=== PATIENT | male | born 1970 | race Caucasian/White ===

== ENCOUNTER 2017-09-18 20:40 | Outpatient (CLI) | payer MEDICAID | END 2017-09-18 20:41 | disposition critical access hospital (66) | LOC: EMS 20:40 | PROVIDERS: ATTEND Surgery | DX: R50.9 Fever, unspecified (principal); R06.02 Shortness of breath; R52 Pain, unspecified | CPT/HCPCS: A0425; A0429; A0999 ==

== ENCOUNTER 2017-09-18 21:06 | Inpatient (IN) | payer MEDICAID ==
[2017-09-18] MEDS ORDERED: KETOROLAC 60 MG/2 ML VIAL IVP STA (21:14)
[2017-09-18] MEDS ORDERED: LORazepam 0.5 MG TABLET PO STA (21:14)
[2017-09-18] MEDS ORDERED: MORPHINE 10 MG/ML VIAL IVP STA (21:14)
[2017-09-18] MEDS ORDERED: ACETAMINOPHEN 500 MG TABLET PO STA (21:14)
[2017-09-18] MEDS ORDERED: SODIUM CHLORIDE 0.9% 1,000 ML IV ONE ×2 (21:14→22:33)
--- NOTE | 2017-09-18 21:31 | ED Physician Documentation ---
History of Present Illness - Stated complaint Stated Complaint: FEVER/SOA - Chief complaint Chief Complaint: Resp - History obtained from History obtained from: Patient, EMS - Additonal information Additional information: 47-year-old male presents to the emergency department with complaints of fever, chills, body aches, cough and right-sided chest pain with shortness of breath. The patient has been using heroin and methamphetamines, today his symptoms began. The patient denies abdominal pain, dyspnea on exertion, productive cough or peripheral edema. Symptoms are described as moderate. No other associated symptoms. No radiation of the symptoms. No attempts at symptom management Review of Systems Constitutional: reports: Fever, Chills, Myalgias, Fatigue Eyes: denies: Discharge Ears: denies: Ear pain Nose: reports: Congestion Throat: denies: Oral lesions / sores Cardiac: reports: Chest pain / pressure Respiratory: reports: Dyspnea GI: denies: Abdominal Pain, Nausea : denies: Dysuria Skin: denies: Lesions Musculoskeletal: denies: Neck pain Neurologic: reports: Generalized weakness. denies: Numbness, Difficulty speaking, Near syncope Immunocompromised: denies: Chemotherapy PD PAST MEDICAL HISTORY - Past Medical History Psych: Bipolar disorder - Past Surgical History Past Surgical History: No - Present Medications Home Medications: Ambulatory Orders Medication Instructions Recorded Confirmed No Known Home Medications [No 09/18/17 09/18/17 Known Home Medications] - Allergies Allergies/Adverse Reactions: Allergies Allergy/AdvReac Type Severity Reaction Status Date / Time No Known Drug Allergies Allergy Verified 09/18/17 21:12 - Social History Does the pt smoke?: Yes Smoking Status: Current every day smoker Does the pt drink ETOH?: No PD ED PE NORMAL - General General: Alert and oriented X 3 - HEENT HEENT: Atraumatic, PERRL, EOMI, Ears normal - Neck Neck: Supple, no meningeal sign - Cardiac Cardiac: RRR, No gallop - Respiratory Respiratory: No respiratory distress, Clear bilaterally - Abdomen Abdomen: Soft, Non tender, Non distended - Derm Derm: Normal color, Warm and dry, No rash - Extremities Extremities: No deformity, No edema - Neuro Neuro: Alert and oriented X 3, Normal speech - Psych Psych: Normal mood PD ED PE EXPANDED - General General: In Pain Results - Vitals Vitals: Vital Signs - 24 hr 09/18/17 09/18/17 09/18/17 21:09 21:21 22:45 Temperature 38.6 C H 39.4 C H 37.4 C Heart Rate 85 79 Respiratory 24 20 Rate Blood Pressure 123/68 91/56 L O2 Saturation 97 97 Oxygen O2 Source Room air - EKG (time done) 21: 28 Rate: Rate (enter#) Rhythm: NSR Intervals: Normal PA, QRS normal Ischemia: Non specific changes Other comments: Other comments (Normal sinus rhythm with no acute ischemic changes) - Labs Labs: Laboratory Tests 09/18/17 09/18/17 09/18/17 21:29 21:29 21:35 WBC 17.1 H RBC 4.38 L Hgb 12.2 L Hct 36.8 L MCV 84.0 MCH 27.8 MCHC 33.0 RDW 13.8 Plt Count 193 MPV 7.6 Neut # (Auto) 15.2 H Lymph # (Auto) 0.8 L [place] # (Auto) 1.0 Eos # (Auto) 0.0 Baso # (Auto) 0.0 Absolute Nucleated RBC 0.00 Nucleated RBC % 0.0 Sodium 125 L Potassium 4.1 Chloride 93 L Carbon Dioxide 24 Anion Gap 8.0 BUN 12 Creatinine 0.8 Estimated GFR (MDRD) 105 Glucose 132 H Lactic Acid Calcium 7.9 L Magnesium 2.0 Total Bilirubin 1.0 AST 18 ALT 18 Alkaline Phosphatase 63 Total Creatine Kinase 36 Troponin I < 0.04 B-Natriuretic Peptide Total Protein 6.9 Albumin 3.0 L Globulin 3.9 Albumin/Globulin Ratio 0.8 L Lipase 33 Salicylates < 6.0 Acetaminophen < 10 L Ethyl Alcohol < 5.0 09/18/17 09/18/17 21:35 21:35 WBC RBC Hgb Hct MCV MCH MCHC RDW Plt Count MPV Neut # (Auto) Lymph # (Auto) [place] # (Auto) Eos # (Auto) Baso # (Auto) Absolute Nucleated RBC Nucleated RBC % Sodium Potassium Chloride Carbon Dioxide Anion Gap BUN Creatinine Estimated GFR (MDRD) Glucose Lactic Acid 1.3 Calcium Magnesium Total Bilirubin AST ALT Alkaline Phosphatase Total Creatine Kinase Troponin I B-Natriuretic Peptide 24 Total Protein Albumin Globulin Albumin/Globulin Ratio Lipase Salicylates Acetaminophen Ethyl Alcohol - Rads (name of study) Chest Xray Radiology: Final report received, See rad report (Impression: Right infiltrate) PD MEDICAL DECISION MAKING - ED course ED course: The patient appears to be acutely ill from pneumonia with hyponatremia. The patient will require admission to the hospital for IV antibiotic and correction of hisSodium. The findings and plan were discussed with the patient who understands and agrees. The case discussed with the hospitalist Dr. Mederos who accepts the patient onto her service - Sepsis Event Vital Signs: Vital Signs - 24 hr 09/18/17 09/18/17 09/18/17 21:09 21:21 22:45 Temperature 38.6 C H 39.4 C H 37.4 C Heart Rate 85 79 Respiratory 24 20 Rate Blood Pressure 123/68 91/56 L O2 Saturation 97 97 Oxygen O2 Source Room air Departure - Departure Disposition: ED Place in Observation Clinical Impression: Hyponatremia, Drug abuse Pneumonia Qualifiers: Pneumonia type: due to unspecified organism Laterality: unspecified laterality Lung location: unspecified part of lung Qualified Code(s): J18.9 - Pneumonia, unspecified organism Condition: Good
[2017-09-18 21:44] LABS: BASOPHILS % (AUTO) 0.2 %; HGB - HEMOGLOBIN 12.2 g/dL (14.0-18.0); LYMPHOCYTES # (AUTO) 0.8 10^3/uL (1.5-3.5); LYMPHOCYTES % (AUTO) 4.8 %; MEAN CORPUSCULAR HEMOGLOBIN 27.8 pg (27.0-31.0); MEAN PLATELET VOLUME 7.6 fL (7.4-11.4); MONOCYTES % (AUTO) 6.1 %; NEUTROPHILS # (AUTO) 15.2 10^3/uL (1.5-6.6); NEUTROPHILS % (AUTO) 88.9 %; PLT - PLATELET COUNT 193 10^3/uL (130-450); RED BLOOD COUNT 4.38 10^6/uL (4.70-6.10); RED CELL DISTRIBUTION WIDTH 13.8 % (12.0-15.0); WHITE BLOOD COUNT 17.1 x10^3/uL (4.8-10.8)
[2017-09-18 21:51] LABS: ALBUMIN/GLOBULIN RATIO 0.8 (1.0-2.2); ALKALINE PHOSPHATASE 63 IU/L (42-121); ALT ALANINE AMINOTRANSFERASE 18 IU/L (10-60); AST ASPARTATE AMINOTRANSFERASE 18 IU/L (10-42); BUN - BLOOD UREA NITROGEN 12 mg/dL (6-20); CALCIUM 7.9 mg/dL (8.5-10.3); CARBON DIOXIDE - CO2 24 mmol/L (21-32); CHLORIDE 93 mmol/L (101-111); CK- CREATINE KINASE 36 IU/L (22-269); CREATININE 0.8 mg/dL (0.6-1.2); GFR - MDRD 105 (>89); GLUCOSE 132 mg/dL (70-100); LIPASE 33 U/L (22-51); SALICYLATE < 6.0 mg/dL; SODIUM 125 mmol/L (135-145); TOTAL PROTEIN 6.9 g/dL (6.7-8.2)
[2017-09-18 22:02] LABS: ACETAMINOPHEN < 10 ug/mL (10-30)
--- NOTE | 2017-09-18 22:18 | XRAY Report ---
Procedure Date: 09/18/2017 Accession Number: [id number] / [id number] Procedure: XR - Chest 2 View X-Ray CPT Code: 71880 FULL RESULT: EXAM: CHEST RADIOGRAPHY EXAM DATE: 09/18/2017 09:49 PM. CLINICAL HISTORY: CP. COMPARISON: None. TECHNIQUE: 2 views. FINDINGS: Lungs/Pleura: Patchy increased density in right mid and lower lung zones. No consolidation, effusion, or pneumothorax. Mediastinum: Heart and mediastinal contours are unremarkable. Upper lobe vessels not distended. Other: Slight anterior narrowing of T7 and possibly T6, probably old. IMPRESSION: Patchy right-sided infiltrates, acute versus chronic. Follow-up may be helpful. RADIA
[2017-09-18] MEDS ORDERED: cefTRIAXone 2 GM in SODIUM CHLORIDE 0.9% MINIBAG 100 ML IV STA (22:23)
[2017-09-18] MEDS ORDERED: AZITHROMYCIN INJ 500 MG in SODIUM CHLORIDE 0.9% 250 ML IV STA (22:23)
[2017-09-18] MEDS ORDERED: SODIUM CHLORIDE FLUSH 0.9% 10 ML SYRINGE IVP PRN (22:43)
[2017-09-18] MEDS ORDERED: KETOROLAC 30 MG/ML VIAL IM STA (22:45)
[2017-09-18] MEDS ORDERED: cefTRIAXone 1 GM in SODIUM CHLORIDE 0.9% MINIBAG 100 ML IV STA (22:47)
[2017-09-18] MEDS ORDERED: NALOXONE 0.4 MG/ML VIAL IVP STA (23:00)
--- NOTE | 2017-09-18 23:06 | HISTORY & PHYSICAL EXAMINATION ---
Chief Complaint - Chief Complaint Chief Complaint: Shortness of breath History of Present Illness - Admitted From Admitted From:: Home - History Obtained From History obtained from: Patient, Ed Physician Exam Limitations: Pt is sedated, not waking up dspite narcan administration - History of Present Illness HPI Comment/Other: Mr. Tyrese villarreal is a 47-year-old man who is a methamphetamine and heroin drug user, last using the morning of September 18 according to him, who is been having increasing shortness of breath over the last couple of days. He came to the emergency department and was found to have a right middle lobe infiltrate and was also found to be severely hyponatremic, with a value of 125. He was not significantly hypoxic but given his hyponatremia and his right middle lobe pneumonia and was felt to be prudent to admit him to the hospital at this time. The patient's past medical history is remarkably benign with a denial of any home medications, any surgical history, or any prior hospitalizations. He will be admitted to medical surgical bed, placed on IV antibiotics, and his significant hyponatremia will be addressed. History - Past Medical History Cardiovascular: reports: None Respiratory: reports: None Neuro: reports: None Endocrine/Autoimmune: reports: None GI: reports: None PUBLIC DEFENDER: reports: None : reports: None HEENT: reports: None Psych: reports: Bipolar disorder Musculoskeletal: reports: None Derm: reports: None MRSA Hx?: No Other Past Medical History: The patient denies any prior hospitalizations or any existing medical issues. - Past Surgical History Other past surgical history: The patient denies any surgical history - Family & Social History Family History: Mother: , Cancer, Father: Alive and Well, Sister: Alive and Well, Brother: Alive and Well Family History Comment/Other: Patient says his father and siblings are alive and well and that his mother from cancer.He denies any knowledge of any other medical issues in the family. Living arrangement: Other (The patient is a drug addict and moves around. He says he is not homeless but is living with a friend.) Living Situation: With friend(s) Social History Notes: The patient is an IV drug user and says he lives with friends and is not homeless - Substance History Use: Uses substance without health or social issues: NONE Abuse: Recurrent use of substance despite neg consequences: Amphetamine, Opioid Dependence: Experiences withdrawal or developed tolerances: Amphetamine, Opioid - POLST Patient has POLST: No POLST Status: Full Code (Patient denies tobacco use but smokes marijuana) Meds/Allgy - Home Medications Home Medications: Ambulatory Orders Medication Instructions Recorded Confirmed No Known Home Medications [No 09/18/17 09/18/17 Known Home Medications] - Allergies Allergies/Adverse Reactions: Allergies Allergy/AdvReac Type Severity Reaction Status Date / Time No Known Drug Allergies Allergy Verified 09/18/17 21:12 Review of Systems - Constitutional Constitutional: reports: Fatigue, Weakness. denies: Fever, Chills, Malaise, Night sweats - Eyes Eyes: denies: Pain, Irritation, Blurred vision, Dipolpia - Ears, Nose & Throat Ears, Nose & Throat: denies: Ear pain, Hearing loss, Hearing aids, Tinnitus, Vertigo, Nasal pain, Nasal discharge, Nosebleeds - Cardiovascular Cariovascular: reports: Chest pain. denies: Irregular heart rate, Palpitations , Edema, Syncope - Respiratory Respiratory: reports: SOB with exertion. denies: Cough, Sputum production, Wheezing, Snoring, Hemoptysis, Orthopnea, SOB at rest - Gastrointestinal Gastrointestinal: denies: Abdominal pain, Abdominal distention, Constipation, Change in bowel habits, Rectal bleeding, Nausea, Vomiting - Genitourinary Genitourinary: denies: Dysuria, Frequency, Urgency, Hematuria - Musculoskeletal Musculoskeletal: denies: Muscle pain, Back pain, Muscle aches, Stiffness - Integumentary Integumentary: denies: Rash, Pruritis, Lesions, Dryness - Neurological Neurological: denies: General weakness, Focal weakness, Headache, Dizziness - Psychiatric Psychiatric: reports: Other (Patient has a history of bipolar disorder. He is somewhat sedated at this time despite not being given any psychoactive medications, likely withdrawing from the methamphetamine). denies: Depression, Anxiety, Suicidal, Hallucinations - Endocrine Endocrine: denies: Polyuria, Polydypsia, Polyphagia - Hematologic/Lymphatic Hematologic/Lymphatic: denies: Anemia, Bruising, Petechiae, Lymphadenopathy - All Other Systems All Other Systems: reports: Reviewed and negative Exam - Vital Signs Reviewed Vital Signs: Yes Vital Signs: Vital Signs x48h Temp Pulse Resp BP Pulse Ox 09/18/17 22:45 37.4 C 79 20 91/56 L 97 09/18/17 21:21 39.4 C H 09/18/17 21:09 38.6 C H 85 24 123/68 97 - Physical Exam General Appearance: positive: No acute distress, Lethargic Eyes Bilateral: positive: Normal inspection, PERRL, EOMI, No lid inflammation, Conjunctivae nml, No scleral icterus ENT: positive: ENT inspection nml, Pharynx nml, No signs of dehydration Neck: positive: Nml inspection, Thyroid nml, No JVD, Trachea midline. negative : Thyromegaly Respiratory: positive: Chest non-tender, No respiratory distress, Breath sounds nml. negative: Wheezes, Rales, Rhonchi Cardiovascular: positive: Regular rate & rhythm, No murmur, No gallop Peripheral Pulses: positive: 1+ Abdomen: positive: Non-tender, No organomegaly, Nml bowel sounds, No distention. negative: Guarding, Rebound Back: positive: Nml inspection. negative: CVA tenderness (R), CVA tenderness (L ) Skin: positive: Color nml, No rash, Warm, Dry. negative: Cyanosis Extremities: positive: Non-tender, Full ROM, Nml appearance, No pedal edema Neurologic/Psychiatric: positive: Oriented x3, CN's nml (2-12), Motor nml, Sensation nml, Depressed mood/affect Conclusion/Plan - Problem List (1) Pneumonia Conclusion/Plan: The patient is shown to have a right middle lobe infiltrate, presumably pneumonia. We will start him on ceftriaxone and azithromycin for community- acquired pneumonia. We will give him supplemental oxygen as needed and if necessary respiratory therapy. He currently has an oxygen saturation of 97% on room air. Qualifiers: Pneumonia type: due to unspecified organism Laterality: unspecified laterality Lung location: unspecified part of lung Qualified Code(s): J18.9 - Pneumonia, unspecified organism (2) Hyponatremia Conclusion/Plan: Patient's sodium is 125. We will give him normal saline via IV fluids and oral salt tablets. (3) Drug abuse Conclusion/Plan: We will obtain a geriatric social work professor consult for the patient to see if he is qualified for any programs that he may be interested in. - Lab Results Lab results reviewed: Yes Fish Bones: 09/19/17 05:13 09/19/17 05:13 - Diagnostic Imaging Results Diagnostic Imaging Results: positive: Final report reviewed Diagnostic Imaging Results Comments: EXAM: CHEST RADIOGRAPHY EXAM DATE: 09/18/2017 09:49 PM. CLINICAL HISTORY: CP. COMPARISON: None. TECHNIQUE: 2 views. FINDINGS: Lungs/Pleura: Patchy increased density in right mid and lower lung zones. No consolidation, effusion, or pneumothorax. Mediastinum: Heart and mediastinal contours are unremarkable. Upper lobe vessels not distended. Other: Slight anterior narrowing of T7 and possibly T6, probably old. IMPRESSION: Patchy right-sided infiltrates, acute versus chronic. Follow-up may be helpful. - EKG Results EKG Interpreted Independently: Yes EKG Comparison: Old EKG unavailable EKG Findings: Normal sinus rhythm, rate 84. No signs of ischemic changes Core Measures - Anticipated LOS I expect patient to be DC'd or transferred within 96 hours.: Yes - DVT/VTE - Prophylaxis VTE/DVT Device ordered at admit?: Yes
[2017-09-18] MEDS ORDERED: NALOXONE 0.4 MG/ML VIAL ONE (23:10)
[2017-09-19] MEDS: KETOROLAC 30 MG/ML VIAL IVP PRN ×3 (03:19→18:19)
[2017-09-19] MEDS: SODIUM CHLORIDE 1 GM TABLET PO SCH ×4 (03:19→16:41)
[2017-09-19 03:28] LABS: BILIRUBIN,URINE NEGATIVE (NEGATIVE); GLUCOSE, URINE (UA) NEGATIVE (NEGATIVE); KETONES,URINE (UA) NEGATIVE (NEGATIVE); LEUKOCYTE ESTERASE, URINE NEGATIVE (NEGATIVE); NITRITE,URINE NEGATIVE (NEGATIVE); OCCULT BLOOD,URINE NEGATIVE (NEGATIVE); PROTEIN,URINE TRACE mg/dL (NEGATIVE); UROBILINOGEN,URINE 1 (NORMAL) E.U./dL (NORMAL)
[2017-09-19 03:33] LABS: CLARITY,URINE CLEAR (CLEAR)
[2017-09-19] MEDS: D5.45NS W/20 MEQ KCL 1,000 ML IV SCH ×3 (03:46→21:31)
[2017-09-19] MEDS: SODIUM CHLORIDE FLUSH 0.9% 10 ML SYRINGE IVP SCH ×3 (03:52→16:41)
[2017-09-19 05:47] LABS: HGB - HEMOGLOBIN 11.4 g/dL (14.0-18.0); MEAN CORPUSCULAR HEMOGLOBIN 27.7 pg (27.0-31.0); MEAN CORPUSCULAR HGB CONC 33.3 g/dL (32.0-36.0); MEAN CORPUSCULAR VOLUME 83.3 fL (80.0-94.0); MEAN PLATELET VOLUME 8.2 fL (7.4-11.4); RED BLOOD COUNT 4.1 10^6/uL (4.70-6.10)
[2017-09-19 05:59] LABS: CALCIUM 7.9 mg/dL (8.5-10.3); CREATININE 0.8 mg/dL (0.6-1.2)
[2017-09-19] MEDS: POLYETHYLENE GLYCOL 3350 17 GM PACKET PO SCH (08:23)
--- NOTE | 2017-09-19 08:37 | XRAY Report ---
Procedure Date: 09/19/2017 Accession Number: [id number] / [id number] Procedure: XR - Chest 1 View X-Ray CPT Code: 40654 FULL RESULT: EXAM: Chest 1 View X-Ray DATE: 09/19/2017 7:19 AM CLINICAL HISTORY: pneumonia COMPARISON: 09/18/2017. TECHNIQUE: Single view of the chest. FINDINGS: Lungs/Pleura: Bibasilar opacities left greater than right are new compared to prior, in the setting of clinical pneumonia this represents early airspace infiltrate. No pleural effusion or pneumothorax. Mediastinum: Within exam limitations, cardiomediastinal contour is normal. Other: None. IMPRESSION: Early pneumonia predominately left lung base. RADIA
[2017-09-19] MEDS ORDERED: AZITHROMYCIN INJ 250 MG in SODIUM CHLORIDE 0.9% 250 ML IV SCH (09:00)
[2017-09-19] MEDS ORDERED: cefTRIAXone 1 GM in SODIUM CHLORIDE 0.9% MINIBAG 100 ML IV SCH (09:00)
--- NOTE | 2017-09-19 09:27 | PROVIDER PROGRESS NOTE ---
Subjective - Prog Note Date Prog Note Date: 09/19/17 Prog Note Time: 09:26 - Subjective Pt reports feeling: No change Subjective: Tyrese complains of upper right, non-radiating chest pain that is sharp and constant. He is found in the " position" upon exam. He may not have made eye contact for any part of this exam. He admits to increased shortness of breath, nausea, and a cough. He denies hallucinations, vomiting or dizziness. Current Medications - Current Medications Current Medications: Microbiology 09/18/17 21:35 Blood Culture - Preliminary Blood 09/18/17 21:29 Blood Culture - Preliminary Blood Active Medications Haloperidol (Haldol Inj) 1 mg IM Q4H PRN PRN Reason: Agitation Last Admin: 09/19/17 15:47 Dose: 1 mg Potassium Chloride/Dextrose/Sod Cl (D5.45ns W/20 Meq Kcl) 1,000 mls @ 100 mls/ hr IV .Q10H [facility] Last Infusion: 09/20/17 06:00 Dose: 100 mls/hr Piperacillin Sod/Tazobactam (Sod 4.5 gm/ Sodium Chloride) 100 mls @ 200 mls/hr IV Q6H [facility] Last Infusion: 09/20/17 07:28 Dose: Infused Vancomycin HCl 1 gm/ Sodium (Chloride) 250 mls @ 130 mls/hr IV 0400,1200,2000 [facility] Last Infusion: 09/20/17 06:00 Dose: Infused Ibuprofen (Motrin) 600 mg PO Q6HR PRN PRN Reason: Pain 1 to 4 Last Admin: 09/20/17 00:42 Dose: 600 mg Ketorolac Tromethamine (Toradol Inj (30mg)) 30 mg IVP Q6HR PRN PRN Reason: PAIN Stop: 09/24/17 00:07 Last Admin: 09/19/17 18:19 Dose: 30 mg Methadone HCl () 5 mg PO TID PRN PRN Reason: PAIN Last Admin: 09/20/17 08:14 Dose: 5 mg Polyethylene Glycol (Miralax) 17 gm PO DAILY CHIKIS Last Admin: 09/20/17 07:50 Dose: Not Given Sodium Chloride (Normal Saline Flush 0.9%) 10 ml IVP PRN PRN PRN Reason: NEEDED PER PROVIDER ORDERS Sodium Chloride (Normal Saline Flush 0.9%) 10 ml IVP 0100,0900,1700 [facility] Last Admin: 09/20/17 07:50 Dose: Not Given No Known Home Medications [No Known Home Medications] 09/18/17 Objective - Vital Signs/Intake & Output Reviewed Vital Signs: Yes Vital Signs: Vital Signs x48h Temp Pulse Resp BP Pulse Ox 09/19/17 08:52 82/53 L 09/19/17 08:51 37.0 C 64 21 123/93 H 100 Intake & Output: Intake & Output 09/16/17 09/17/17 09/18/17 09/19/17 23:59 23:59 23:59 23:59 Intake Total 250 1770 Output Total 700 Balance 250 1070 - Objective General Appearance: positive: Alert, Severe distress, Anxious Eyes Bilateral: positive: Normal inspection ENT: positive: ENT inspection nml, Pharynx nml, Pharyngeal erythema, Dry mucous membranes Neck: positive: Lymphadenopathy (R), Lymphadenopathy (L), Stiff neck Respiratory: positive: Wheezes, Rhonchi Cardiovascular: positive: Regular rate & rhythm, No gallop, Bradycardia, Systolic murmur Peripheral Pulses: 1+ Radial (R), 1+ Radial (L) Abdomen: positive: Tenderness, Guarding, Abnml bowel sounds Back: positive: Nml inspection Skin: positive: No rash, Warm, Dry Extremities: positive: Non-tender, Full ROM, No pedal edema, Other (BLE foot wounds on walking surfaces. Wound nurse gave orders.) Neurologic/Psychiatric: positive: Oriented x3, CN's nml (2-12), Motor nml, Sensation nml, Depressed mood/affect Reflexes: Bicep (R): 3+, Bicep (L): 3+ - Lab Results Fish Bones: 09/20/17 05:22 09/20/17 05:22 Other Labs: Lab Results x24hrs 09/19/17 09/19/17 09/19/17 Range/Units 05:13 05:13 02:50 WBC 13.0 H (4.8-10.8) x10^3/uL RBC 4.10 L (4.70-6.10) 10^6/uL Hgb 11.4 L (14.0-18.0) g/dL Hct 34.1 L (42.0-52.0) % MCV 83.3 (80.0-94.0) fL MCH 27.7 (27.0-31.0) pg MCHC 33.3 (32.0-36.0) g/dL RDW 14.0 (12.0-15.0) % Plt Count 155 (130-450) 10^3/uL MPV 8.2 (7.4-11.4) fL Sodium 131 L (135-145) mmol/L Potassium 3.7 (3.5-5.0) mmol/L Chloride 99 L (101-111) mmol/L Carbon Dioxide 24 (21-32) mmol/L Anion Gap 8.0 (6-13) BUN 16 (6-20) mg/dL Creatinine 0.8 (0.6-1.2) mg/dL Estimated GFR (MDRD) 105 (>89) Glucose 189 H (70-100) mg/dL Calcium 7.9 L (8.5-10.3) mg/dL Urine Color DARK YELLOW Urine Clarity CLEAR (CLEAR) Urine pH 6.0 (5.0-7.5) PH Ur Specific [place] 1.020 (1.002-1.030) Urine Protein TRACE (NEGATIVE) mg/dL Urine Glucose (UA) NEGATIVE (NEGATIVE) mg/dL Urine Ketones NEGATIVE (NEGATIVE) mg/dL Urine Occult Blood NEGATIVE (NEGATIVE) Urine Nitrite NEGATIVE (NEGATIVE) Urine Bilirubin NEGATIVE (NEGATIVE) Urine Urobilinogen 1 (NORMAL) (NORMAL) E.U./dL Ur Leukocyte Esterase NEGATIVE (NEGATIVE) Ur Microscopic Review NOT INDICATED Urine Culture Comments NOT INDICATED - Diagnostic Imaging Diagnostic Imaging Results: positive: Prelim report reviewed, Final report reviewed ABX Reporting Has patient been on IV antibiotics over the past 48 hours?: Yes Assessment/Plan - Problem List (1) IVDU (intravenous drug user) Impression: The patient admits to at least a 15 year opioid dependence and his current drug of choice is IV heroin, and methanphetamines. He has evidence of this and has chronic BUE swelling with very poor vein choices. He has very calloused fingers , with very poor skin turgor. If this infection turns out to be endocarditis he may need manager long term care IV antibiotics for up to 6 weeks, but this will be a recommendation by an Infectious disease provider. Plan: Continue IV treatment for his suspected + blood cultures, monitor for AMA. Continue Methadone, as needed. (2) Homelessness Impression: The patient has BLE foot wounds from "not having any shoes". He is thought to be homeless intermittently as a consequence of his addiction. He belongs to an outreach program. Plan: Social work program. (3) Open wound of both lower extremities with complication Impression: The patient is known to be homeless and consequently can not always afford shoes. He was seen by the wound nurse and she gave recommendations. Plan: See orders for new wound care. (4) Non-compliance Impression: The patient has a community support group called [facility]. Robert Padron was here to visit and was concerned that the patient will leave AMA if he is not given something for his pain. The patient has no recent hospital stays. Plan: Start low dose Methadone only to be used to treat pain while in the hospital acutely. (5) Chronic pain disorder Impression: The patient has chronic pain and he states that he has low back pain "every day ". Low dose Methadone was ordered, PRN. The patient also had severe upper right chest pain upon exam today and this is likely the acute pneumonia, and the lack of the usual IV drugs that he uses out patient. Plan: Continue Methadone to treat this acute pain. (6) Right lower lobe pneumonia Impression: The patient was brought in with shortness of breath and is found to have mid to lower lobe PNA on x-ray. Today, the patient continues to have right upper chest pain, so I have ordered a chest CT. The patient denies a productive cough. I have changed his treatment due to preliminary + blood culture results to Vanco/pip-tazo. Plan: Continue IV treatment for this pneumonia. (7) Blood bacterial culture positive Impression: Preliminary results for BOTH blood cultures are positive for staph aureous. This is very concerning and this raises the suspicion for a progression toward endocarditis. He is a known IV drug user and has been for several years. He has good evidence of this. Plan: Continue IV treatment, await cultures.
[2017-09-19] MEDS ORDERED: IOPAMIDOL-300 100 ML VIAL ONE (11:34)
[2017-09-19] MEDS: PIPERACILLIN/TAZOBACTAM 4.5 GM in SODIUM CHLORIDE 0.9% MINIBAG 100 ML IV SCH ×2 (11:59→18:14)
[2017-09-19] MEDS ORDERED: VANCOMYCIN PER PHARMACY 100 GM in SODIUM CHLORIDE 0.9% 250 ML IV SCH (12:00)
[2017-09-19] MEDS: VANCOMYCIN INJ 1 GM in SODIUM CHLORIDE 0.9% 250 ML IV SCH ×2 (12:56→20:04)
[2017-09-19] MEDS ORDERED: HALOPERIDOL 5 MG/ML VIAL IM PRN (15:36)
[2017-09-19] MEDS: METHADONE 5 MG TABLET PO SCH ×2 (15:53→21:32)
[2017-09-19] MEDS ORDERED: IOPAMIDOL-300 100 ML VIAL IVP ONE (17:08)
--- NOTE | 2017-09-19 18:03 | CT Report ---
Procedure Date: 09/19/2017 Accession Number: [id number] / [id number] Procedure: CT - Chest Angio (PE) CPT Code: FULL RESULT: EXAM: CT ANGIOGRAM CHEST EXAM DATE: 09/19/2017 05:04 PM. CLINICAL HISTORY: Chest pain. COMPARISON: None. TECHNIQUE: Routine helical imaging was performed through the chest in the pulmonary arterial phase. IV Contrast: ISOVUE 300 80mL. Reconstructions: Coronal 3-D MIP reconstructions.Sagittal and coronal. In accordance with CT protocol optimization, one or more of the following dose reduction techniques were utilized for this exam: automated exposure control, adjustment of mA and/or KV based on patient size, or use of iterative reconstructive technique. FINDINGS: Pulmonary Arteries: Diagnostic quality: Adequate through the proximal segmental arteries. No evidence for acute or chronic thrombotic pulmonary emboli. No evidence of central embolus. No right heart strain. Lungs/Pleura: There are areas of peripheral consolidation with relative central lucency throughout the lungs. There is more focal consolidation within the dependent lung bases. There are small bilateral pleural effusions. No focal central airway abnormalities are seen. There is no pneumothorax. Mediastinum: Heart size is within normal limits. No enlarged thoracic lymph nodes. Thoracic Aorta: Unremarkable. Upper Abdomen: Subcentimeter right hepatic lobe hypodensity is too small to characterize. Visualized portions of the upper abdominal organs demonstrate no suspicious findings. Other: None. IMPRESSION: 1. No evidence of acute thrombotic pulmonary embolism through the proximal segmental branch level. Timing of contrast bolus and respiratory motion artifact limit assessment of distal vessels. There is no evidence of central embolus or right heart strain. 2. There are areas of patchy peripheral consolidation with relative central lucency throughout the lungs. Given history of intravenous drug use, this is suspicious for septic emboli. Organizing pneumonia would have a similar CT appearance. 3. There are small bilateral pleural effusions. 4. There is no evidence of thoracic aortic dissection. RADIA
[2017-09-20] MEDS: PIPERACILLIN/TAZOBACTAM 4.5 GM in SODIUM CHLORIDE 0.9% MINIBAG 100 ML IV SCH ×3 (00:17→11:44)
[2017-09-20] MEDS: SODIUM CHLORIDE FLUSH 0.9% 10 ML SYRINGE IVP SCH ×3 (00:18→16:40)
[2017-09-20] MEDS: IBUPROFEN 600 MG TABLET PO PRN ×2 (00:42→16:45)
[2017-09-20] MEDS ORDERED: METHADONE 5 MG TABLET PO PRN (03:51)
[2017-09-20] MEDS: VANCOMYCIN INJ 1 GM in SODIUM CHLORIDE 0.9% 250 ML IV SCH (03:58)
[2017-09-20 05:36] LABS: HGB - HEMOGLOBIN 10.8 g/dL (14.0-18.0); MEAN CORPUSCULAR HEMOGLOBIN 27.5 pg (27.0-31.0); MEAN CORPUSCULAR HGB CONC 32.1 g/dL (32.0-36.0); MEAN CORPUSCULAR VOLUME 85.7 fL (80.0-94.0); MEAN PLATELET VOLUME 8.1 fL (7.4-11.4); RED BLOOD COUNT 3.94 10^6/uL (4.70-6.10); RED CELL DISTRIBUTION WIDTH 13.9 % (12.0-15.0); WHITE BLOOD COUNT 15.4 x10^3/uL (4.8-10.8)
[2017-09-20 05:45] LABS: CALCIUM 7.7 mg/dL (8.5-10.3); CREATININE 0.7 mg/dL (0.6-1.2)
--- NOTE | 2017-09-20 06:46 | XRAY Report ---
Procedure Date: 09/20/2017 Accession Number: [id number] / [id number] Procedure: XR - Chest 1 View X-Ray CPT Code: 31652 FULL RESULT: EXAM: CHEST RADIOGRAPHY EXAM DATE: 09/20/2017 06:10 AM. CLINICAL HISTORY: Pneumonia. COMPARISON: CHEST 1 VIEW 09/19/2017 7:09 AM. TECHNIQUE: 1 view. FINDINGS: Lungs/Pleura: Bilateral infiltrates or edema are slightly worse compared with the prior exam. No definite pleural effusion seen. No pneumothorax. Mediastinum: Within exam limitations, heart size normal to upper normal. Other: None. IMPRESSION: 1. Borderline heart size with mild worsening of bilateral infiltrates or pulmonary edema. RADIA
[2017-09-20] MEDS: POLYETHYLENE GLYCOL 3350 17 GM PACKET PO SCH (07:50)
[2017-09-20] MEDS: METHADONE 5 MG TABLET PO PRN ×2 (08:14→13:42)
[2017-09-20] MEDS: D5.45NS W/20 MEQ KCL 1,000 ML IV SCH ×2 (11:40→15:38)
[2017-09-20 12:48] LABS: VANCOMYCIN,TROUGH 9.2 ug/mL (10.0-20.0)
[2017-09-20] MEDS ORDERED: VANCOMYCIN INJ 1.75 GM in SODIUM CHLORIDE 0.9% 500 ML IV SCH (13:17)
--- NOTE | 2017-09-20 14:57 | DISCHARGE SUMMARY ---
Discharge Summary Admit Date: 09/18/17 Discharge Date: 09/20/17 Discharging Provider: MARIA Pena Primary Care Provider: Danitza Shelley Code Status: Attempt Resuscitation Condition at Discharge: Stable Discharge Disposition: 02 Transfer Acute Care Hosp Discharge Facility Name: [facility] - DIAGNOSES Admission Diagnoses: Lobar pneumonia, unspecified organism (J18.1) Hypo-osmolality and hyponatremia (E87.1) Other psychoactive substance abuse, uncomplicated (F19.10) Discharge Diagnoses with Status of Each Condition: Right middle lobe pneumonia (J18.1) new on this admission, treated with IV antibiotics. Septic embolism (I26.90) new on this admission, confirmed on imaging. Blood bacterial culture positive (R78.81) new on this admission, IV treatment. Hyponatremia (E87.1) resolved. IVDU (intravenous drug user) (F19.90) chronic, no suspected use while in the hospital. Homelessness (Z59.0) chronic, stable. Open wound of both lower extremities with complication (S81.801A) stable. Non-compliance (Z91.19) chronic, stable. Chronic pain disorder (G89.4) chronic, stable. - HPI History of Present Illness: Tyrese Burns is a 47-year-old man who is a known methamphetamine and heroin drug user, last using the morning of September 18 according to him, who is been having increasing shortness of breath over the last couple of days. He came to the emergency department and was found to have a right middle lobe infiltrate and was also found to be severely hyponatremic, with a value of 125. He was not significantly hypoxic but given his hyponatremia and his right middle lobe pneumonia and was felt to be prudent to admit him to the hospital at this time. The patient's past medical history is remarkably benign with a denial of any home medications, any surgical history, or any prior hospitalizations. He will be admitted to medical surgical bed, placed on IV antibiotics, and his significant hyponatremia will be addressed. - HOSPITAL COURSE Hospital Course: The following diagnoses were prevalent during this hospital stay: (1) IVDU (intravenous drug user) The patient admits to at least a 15 year opioid dependence and his current drug of choice is IV heroin, and methanphetamines. He has evidence of this and has chronic BUE swelling with very poor vein choices. He has very calloused fingers , with very poor skin turgor. 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 The patient has been given IV treatment for his suspected + blood cultures, monitor for AMA. (2) Homelessness The patient has BLE foot wounds from "not having any shoes". He is thought to be homeless intermittently as a consequence of his addiction. He belongs to an outreach program. Social work has been consulted for community resources. (3) Open wound of both lower extremities with complication The patient is known to be homeless and consequently can not always afford shoes. He was seen by the wound nurse and she gave recommendations. (4) Non-compliance The patient has a community support group called [facility]. Robert Padron was here to visit and was concerned that the patient will leave AMA if he is not given something for his pain. The patient has no recent hospital stays. The patient was started on low dose Methadone only to be used to treat pain while in the hospital acutely. (5) Chronic pain disorder The patient has chronic pain and he states that he has low back pain "every day ". Low dose Methadone was ordered, PRN. The patient also had severe upper right chest pain upon exam today and this is likely the acute pneumonia, and the lack of the usual IV drugs that he uses out patient. Plan: Continue Methadone to treat this acute pain. (6) Right lower lobe pneumonia The patient was brought in with shortness of breath and is found to have mid to lower lobe PNA on x-ray. Today, the patient continues to have right upper chest pain, so I have ordered a chest CT. The patient denies a productive cough. I have changed his treatment due to preliminary + blood culture results to Vanco/pip-tazo. Continue IV treatment for this pneumonia. (7) Blood bacterial culture positive Preliminary results for BOTH blood cultures are positive for staph aureous. This is very concerning and this raises the suspicion for a progression toward endocarditis. He is a known IV drug user and has been for several years. He has good evidence of this. The patient was continued on IV treatment, and we are awaiting final cultures. (8) Septic Emboi Imaging showed a septic emboli on a chest CT that was done to rule out for PE as the patient was having uncontrolled upper right chest pain. This was one of the primary reasons for transfer to a higher level of care. Disposition: The patient was in stable condition and all set to transfer to the first accepting facility, which was [facility] in [place], [place] for further treatment of + blood cultures with a progression toward endocarditis. The patient had signed all required paperwork, but when the ambulance drivers arrived for the transport, the patient then refused. My chief MD met with the patient who agrees to a transfer only if IV morphine is given, so morphine 4 mg IV x1 dose was ordered and the transfer went very smooth. - ALLERGIES Allergies/Adverse Reactions: Allergies Allergy/AdvReac Type Severity Reaction Status Date / Time No Known Drug Allergies Allergy Verified 09/18/17 21:12 - MEDICATIONS Home Medications: Ambulatory Orders Medication Instructions Recorded Confirmed No Known Home Medications [No 09/18/17 09/20/17 Known Home Medications] - PHYSICAL EXAM AT DISCHARGE General Appearance: positive: Alert, Moderate distress, Anxious Eyes Bilateral: positive: Normal inspection ENT: positive: ENT inspection nml, Pharyngeal erythema, Dry mucous membranes Neck: positive: Nml inspection, Thyroid nml, No JVD, Lymphadenopathy (R), Lymphadenopathy (L), Stiff neck Respiratory: positive: Chest non-tender, Wheezes, Rhonchi, Other (right worse than left.) Cardiovascular: positive: Regular rate & rhythm, Bradycardia, Systolic murmur Peripheral Pulses: positive: 1+ Abdomen: positive: Tenderness, Guarding, Abnml bowel sounds Back: positive: Nml inspection Skin: positive: No rash, Warm, Dry, Pallor, Embolic lesions Extremities: positive: Pedal edema, Joint swelling Neurologic/Psychiatric: positive: Oriented x3, Disoriented to time, Weakness, Sensory loss, Slurred/abnml speech, Depressed mood/affect, Other (sluggish speech) Reflexes: Bicep (R): 2+, Bicep (L): 2+ Physical Exam Other/Comments: 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 - LABS Result Diagrams: 09/20/17 05:22 09/20/17 05:22 - DIAGNOSTIC IMAGING Diagnostic Imaging Results: Prelim report reviewed, Final report reviewed Diagnostic Imaging Results Comments: EXAM: CT ANGIOGRAM CHEST EXAM DATE: 09/19/2017 05:04 PM. IMPRESSION: 1. No evidence of acute thrombotic pulmonary embolism through the proximal segmental branch level. Timing of contrast bolus and respiratory motion artifact limit assessment of distal vessels. There is no evidence of central embolus or right heart strain. 2. There are areas of patchy peripheral consolidation with relative central lucency throughout the lungs. Given history of intravenous drug use, this is suspicious for septic emboli. Organizing pneumonia would have a similar CT appearance. 3. There are small bilateral pleural effusions. 4. There is no evidence of thoracic aortic dissection. EXAM: CHEST RADIOGRAPHY EXAM DATE: 09/20/2017 06:10 AM. IMPRESSION: 1. Borderline heart size with mild worsening of bilateral infiltrates or pulmonary edema. ECHOCARDIOGRAM 09/18/[address] Marcel العراقي 1. The LV size is normal. LV wall thickness is normal. Overall LV systolic function is normal with an EF of 60-65%. 2. The RV is normal in size and function. 3. No significant valvular abnormality. No vegetation or mass noted. 4. Clinical correlation recommended. All imaging from this hospital stay were sent "pushed by our radiology department" to [facility]. - FOLLOW UP Follow Up: [facility] to [facility], Dr. Topete - TIME SPENT Time Spent in Discharge (Minutes): 60
[2017-09-20] MEDS ORDERED: NICOTINE 14 MG PATCH TOP SCH (15:00)
--- NOTE | 2017-09-20 15:02 | Discharge Plan ---
Discharge Plan Disposition: 02 Transfer Acute Care Hosp Condition: Stable Diet: Regular Activity Restrictions: No Restrictions Shower Restrictions: No Driving Restrictions: No Weight Bearing: Full Weight Additional Instructions or Follow Up instructions: A [id number] report was given to Dr. Topete at [facility] who accepted this patient. The patient's uncle, who is a retired MD was involved in this plan of care. Active Medications Haloperidol (Haldol Inj) 1 mg IM Q4H PRN PRN Reason: Agitation Last Admin: 09/19/17 15:47 Dose: 1 mg Potassium Chloride/Dextrose/Sod Cl (D5.45ns W/20 Meq Kcl) 1,000 mls @ 100 mls/ hr IV .Q10H CHIKIS Last Infusion: 09/20/17 06:00 Dose: 100 mls/hr Piperacillin Sod/Tazobactam (Sod 4.5 gm/ Sodium Chloride) 100 mls @ 200 mls/hr IV Q6H CHIKIS Last Infusion: 09/20/17 07:28 Dose: Infused Vancomycin HCl 1 gm/ Sodium (Chloride) 250 mls @ 130 mls/hr IV 0400,1200,2000 [facility] Last Infusion: 09/20/17 06:00 Dose: Infused Ibuprofen (Motrin) 600 mg PO Q6HR PRN PRN Reason: Pain 1 to 4 Last Admin: 09/20/17 00:42 Dose: 600 mg Ketorolac Tromethamine (Toradol Inj (30mg)) 30 mg IVP Q6HR PRN PRN Reason: PAIN Stop: 09/24/17 00:07 Last Admin: 09/19/17 18:19 Dose: 30 mg Methadone HCl () 5 mg PO TID PRN PRN Reason: PAIN Last Admin: 09/20/17 08:14 Dose: 5 mg Polyethylene Glycol (Miralax) 17 gm PO DAILY [facility] Last Admin: 09/20/17 07:50 Dose: Not Given Sodium Chloride (Normal Saline Flush 0.9%) 10 ml IVP PRN PRN PRN Reason: NEEDED PER PROVIDER ORDERS Sodium Chloride (Normal Saline Flush 0.9%) 10 ml IVP 0100,0900,1700 [facility] Last Admin: 09/20/17 07:50 Dose: Not Given No Known Home Medications [No Known Home Medications] 09/18/17 The patient was given a one time dose of Morphine 4 mg IV as he was refusing to go with the ambulance drivers and/or sign for consent. No Smoking: If you smoke, Please STOP! Call for help.
[2017-09-20] MEDS ORDERED: MORPHINE 2 MG/ML SYRINGE IVP ONE (16:36)
[2017-09-20 16:39] VITALS: BP 92/50
[2017-09-20] MEDS ORDERED: MORPHINE 2 MG/ML SYRINGE ONE (16:51)
== END 2017-09-20 16:47 | disposition short-term general hospital (02) | DRG 194 ==
LOC: EDUNIT# → ED 21:06 → MS3 22:43
PROVIDERS: ADMIT Hospitalist; ATTEND Nurse Practitioner
DX: J18.1 Lobar pneumonia, unspecified organism (principal); E87.1 Hypo-osmolality and hyponatremia; I76 Septic arterial embolism; I74.9 Embolism and thrombosis of unspecified artery; F11.20 Opioid dependence, uncomplicated; F15.20 Other stimulant dependence, uncomplicated; I38 Endocarditis, valve unspecified; B95.61 Methicillin susceptible Staphylococcus aureus infection as the cause of diseases classified elsewhere; I95.9 Hypotension, unspecified; S91.302A Unspecified open wound, left foot, initial encounter; S91.301A Unspecified open wound, right foot, initial encounter; W45.8XXA Other foreign body or object entering through skin, initial encounter; F31.9 Bipolar disorder, unspecified; G89.29 Other chronic pain; M54.5 Low back pain; Z59.0 Homelessness; Z91.19 Patient's noncompliance with other medical treatment and regimen
CPT/HCPCS: 36415; 71045; 71046; 71275; 80048; 80053; 80202; 80307; 80320; 80329; 81001; 81003; 82550; 83605; 83690; 83735; 83880; 84443; 84484; 85025; 85027; 85651; 86140; 87040; 87086; 87181; 93005; 93306; 96361; 96374; 96375; 99284; 99285

== ENCOUNTER 2018-11-21 03:01 | Emergency (ER) | payer MEDICAID ==
[2018-11-21 03:13] VITALS: BP 120/64
[2018-11-21] MEDS ORDERED: MELOXICAM 7.5 MG TABLET PO STA (03:36)
[2018-11-21] MEDS ORDERED: cefTRIAXone 1 GM VIAL IM STA (03:36)
[2018-11-21] MEDS ORDERED: LIDOCAINE 1% 2 ML VIAL MC ONE (03:36)
[2018-11-21] MEDS ORDERED: SULFAMETH/TRIMETH DS 800/160 MG TABLET PO STA (03:41)
--- NOTE | 2018-11-21 03:44 | ED Physician Documentation ---
History of Present Illness - Stated complaint Stated Complaint: RIGHT LEG SPIDER BITE - Chief complaint Chief Complaint: Wound - History obtained from History obtained from: Patient - History of Present Illness Timing: How many days ago (3) Pain level max: 8 Pain level now: 8 - Additonal information Additional information: R LE swelling, redness x 2-3 days. no fevers. worse with walking and palpation, better with rest. States history of IVDU, but states is too poor to afford drugs right now. Review of Systems Constitutional: denies: Fever, Chills GI: denies: Vomiting Musculoskeletal: denies: Neck pain, Back pain Neurologic: denies: Headache PD PAST MEDICAL HISTORY - Past Medical History Past Medical History: Yes Psych: Bipolar disorder - Past Surgical History Past Surgical History: No - Present Medications Home Medications: Ambulatory Orders Medication Instructions Recorded Confirmed Cephalexin [Keflex] 500 mg PO Q6H #40 capsule 11/21/18 Ibuprofen [Motrin] 800 mg PO Q8H PRN #30 tablet 11/21/18 Sulfamethox/Trimeth 800/160 1 each PO BID #20 tablet 11/21/18 [Bactrim Ds 800/160] - Allergies Allergies/Adverse Reactions: Allergies Allergy/AdvReac Type Severity Reaction Status Date / Time No Known Drug Allergies Allergy Verified 11/21/18 03:09 - Social History Does the pt smoke?: Yes Smoking Status: Current every day smoker Does the pt drink ETOH?: No Does the pt have substance abuse?: Yes PD ED PE NORMAL - Vitals Vital signs reviewed: Yes - General General: Alert and oriented X 3, No acute distress - HEENT HEENT: Moist mucous membranes - Neck Neck: Supple, no meningeal sign - Cardiac Cardiac: RRR - Respiratory Respiratory: No respiratory distress, Clear bilaterally - Extremities Extremities: Other (Tenderness to palpation and erythema to the distal aspect of the right lower leg, medial aspect. No tenderness over the joint. Full range of motion of the ankle without pain. Does have a 6 x 12 cm area of erythema. No lymphangitis. No fluctuance. No induration. Neurovascularly intact) - Neuro Neuro: Alert and oriented X 3 Results - Vitals Vitals: Vital Signs - 24 hr 11/21/18 03:04 Temperature 36.9 C Heart Rate 77 Respiratory 16 Rate Blood Pressure 120/64 O2 Saturation 98 Oxygen O2 Source Room air PD MEDICAL DECISION MAKING - ED course Complexity details: considered differential, d/w patient ED course: Patient with a cellulitis of the right lower extremity. Given Rocephin and Amparo trim here. Will place on Bactrim and Keflex for home. He is well-appearing, nontoxic. Afebrile. No evidence of necrotizing fasciitis. No evidence of sepsis. No abscess. No septic joint. Patient counseled regarding signs and symptoms for which I believe and urgent re-evaluation would be necessary. Patient with good understanding of and agreement to plan and is comfortable going home at this time This document was made in part using voice recognition software. While efforts are made to proofread this document, sound alike and grammatical errors may occur. Departure - Departure Disposition: Home, Self Care Clinical Impression: Cellulitis Qualifiers: Site of cellulitis: extremity Site of cellulitis of extremity: lower extremity Laterality: right Qualified Code(s): L03.115 - Cellulitis of right lower limb Condition: Good Instructions: ED Infec Skin Cellulitis Follow-Up: Estefany Shelley ARNP [Primary Care Provider] - Within 3 Days Prescriptions: Cephalexin [Keflex] 500 mg PO Q6H #40 capsule Ibuprofen [Motrin] 800 mg PO Q8H PRN #30 tablet PRN Reason: PAIN &/OR FEVER Sulfamethox/Trimeth 800/160 [Bactrim Ds 800/160] 1 each PO BID #20 tablet Comments: Take all into buttocks until gone. Return if you worsen. Follow-up with your doctor within 3 days for a wound check. This should improve over the next 24 hours.
== END 2018-11-21 04:34 | disposition home or self-care (01) ==
LOC: ED 03:01
DX: L03.115 Cellulitis of right lower limb (principal); F17.200 Nicotine dependence, unspecified, uncomplicated
CPT/HCPCS: 96372; 99283; 99284; A9270

== ENCOUNTER 2021-03-29 10:23 | Emergency (ER) | payer MEDICAID ==
--- NOTE | 2021-03-29 11:00 | ED Physician Documentation ---
PD HPI LOWER EXT INJURY - Stated complaint Stated Complaint: L LEG PX - Chief complaint Chief Complaint: Ext Problem - History obtained from History obtained from: Patient - History of Present Illness PD HPI LOW EXT INJURY LOCATION: Left, Lower leg, Ankle Type of injury: Other (had abrasion of duran with scab that was itchy and he scratched it off. HAs developed redness and swelling without drainage.) Timing - onset: How many days ago (several days progressive increase swelling and redness.) Timing - duration: Days Timing - details: Gradual onset, Still present Improved by: Rest (and elevation of the leg.) Worsened by: Palpating, Other (walking) Associated symptoms: Swelling, Discolored (redness with warmth.). No: Weakness, Numbness Contributing factors: Other (history of IVDU but states he does not use legs for injecting.) Similar symptoms before: Diagnosis (cellulitis and abscesses.) Recently seen: Not recently seen (he states he is wanting to stop heroin use and he is contacting drug treatment rehab. He states he expects to get into it in several days. He is concerned about withdrawal in the next few days.) Review of Systems Constitutional: reports: Myalgias. 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 ) Respiratory: None Neuro: None Endocrine/Autoimmune: None Psych: Bipolar disorder Other Past Medical History: Endocarditis - Past Surgical History Past Surgical History: No - Present Medications Home Medications: Ambulatory Orders Medication Instructions Recorded Confirmed Ibuprofen [Motrin] 800 mg PO Q8H PRN #30 tablet 11/21/18 Sulfamethox/Trimeth 800/160 1 each PO BID #20 tablet 11/21/18 [Bactrim Ds 800/160] cephALEXin [Keflex] 500 mg PO Q6H #40 capsule 11/21/18 Buprenorphine HCl/Naloxone HCl 1 each SL Q8H PRN 5 Days #15 film 03/29/21 [Suboxone 4 mg-1 mg Sl Film] Naproxen 500 mg PO BID 7 Days #14 tab.sr 03/29/21 Ondansetron Odt [Zofran] 4 mg TL Q6H PRN #10 tablet 03/29/21 cephALEXin [Keflex] 500 mg PO QID 7 Days #28 cap 03/29/21 - Allergies Allergies/Adverse Reactions: Allergies Allergy/AdvReac Type Severity Reaction Status Date / Time No Known Drug Allergies Allergy Verified 03/29/21 10:42 - Social History Does the pt smoke?: Yes Smoking Status: Current every day smoker Does the pt drink ETOH?: Yes Does the pt have substance abuse?: Yes Substance Use and Type: Marijuana, Meth, Heroin - Immunizations Immunizations are current?: No PD ED PE NORMAL - Vitals Vital signs reviewed: Yes - General General: Alert and oriented X 3, Well developed/nourished - HEENT HEENT: Atraumatic - Neck Neck: Supple, no meningeal sign, No adenopathy - Cardiac Cardiac: RRR, No murmur - Respiratory Respiratory: Clear bilaterally - Abdomen Abdomen: Soft, Non tender - Back Back: No CVA TTP - Derm Derm: Normal color, Warm and dry - Extremities Extremities: Other (left lower anterior leg with superficial abrasion and surrounding redness, swelling, warmth. No fluctuance nor draiange. Normal pulses in foot. Good cap refill in toes. Normal sensation and movement. ) - Neuro Neuro: Alert and oriented X 3, No motor deficit, No sensory deficit, Normal speech Results - Vitals Vitals: Vital Signs - 24 hr 03/29/21 03/29/21 03/29/21 10:37 10:58 12:42 Temperature 36.6 C Heart Rate 69 62 65 Respiratory 16 12 12 Rate Blood Pressure 119/66 124/81 H 132/76 H O2 Saturation 100 97 99 Oxygen O2 Source Room air - Labs Labs: Laboratory Tests 03/29/21 03/29/21 11:34 11:34 WBC 7.0 RBC 3.92 L Hgb 10.6 L Hct 33.1 L MCV 84.4 MCH 27.0 MCHC 32.0 RDW 15.3 H Plt Count 247 MPV 9.2 Neut # (Auto) 5.1 Lymph # (Auto) 1.3 L [place] # (Auto) 0.5 Eos # (Auto) 0.2 Baso # (Auto) 0.0 Absolute Nucleated RBC 0.00 Nucleated RBC % 0.0 Sodium 133 L Potassium 3.9 Chloride 99 L Carbon Dioxide 27 Anion Gap 7.0 BUN 17 Creatinine 0.7 Estimated GFR (MDRD) 120 Glucose 110 H Calcium 8.3 L Total Bilirubin 0.9 AST 17 ALT 12 Alkaline Phosphatase 45 Total Creatine Kinase 127 Total Protein 7.5 Albumin 3.3 Globulin 4.2 Albumin/Globulin Ratio 0.8 L Lipase 22 - Rads (name of study) duplex U/S Radiology: Prelim report reviewed (no DVT), See rad report PD MEDICAL DECISION MAKING - ED course Complexity details: reviewed results (US without DVT. Clinically cellulitis of lower leg. Does not seem deeper layer one exam/labs. Not septic. Can treat outpt. ), re-evaluated patient (he is not having withdrawal right now, but states he does get symptoms if not using heroin. Last use last evening so will need to wait to treat with suboxone. He would like that prescribed to take until he gets into [facility] that he is looking into and will get into likely the next few days. ), considered differential, d/w patient ED course: Patient is IV heroin user, so gave Nalaxone RX from Pharmacy. Departure - Departure Disposition: 01 Home, Self Care Clinical Impression: IVDU (intravenous drug user) Lower extremity cellulitis Qualifiers: Laterality: left Qualified Code(s): L03.116 - Cellulitis of left lower limb Clinical Impression: (Ruled Out): Deep vein thrombosis Condition: Stable Record reviewed to determine appropriate education?: Yes Instructions: Addiction Drug Abuse Tx, ED Infec Skin Cellulitis Prescriptions: cephALEXin [Keflex] 500 mg PO QID 7 Days #28 cap Naproxen 500 mg PO BID 7 Days #14 tab.sr Buprenorphine HCl/Naloxone HCl [Suboxone 4 mg-1 mg Sl Film] 1 each SL Q8H PRN 5 Days #15 film PRN Reason: Nausea / Vomiting Ondansetron Odt [Zofran] 4 mg TL Q6H PRN #10 tablet PRN Reason: Nausea / Vomiting Comments: No signs of blood clot in the affected leg. Presume the redness and swelling are from a skin infection called cellulitis. You can use cephalexin 4 times daily for the next week for this. I would anticipate improvement over the next several days. Elevate the leg often and use an Nik wrap for swelling to help decrease the edema. Use the anti-inflammatory naproxen twice daily with food for the next week for inflammation and pain. To that add Tylenol every 4-6 hours if needed for pain. Zofran if needed for nausea. Continue with your plans for drug treatment over the next several days. Avoid the heroin use. We did dispense you Narcan nasal spray in case you accidentally overdose. Use the Suboxone starting later today or tomorrow to help with withdrawal symptoms, so that you can stop the opioid use. I dispensed your prescriptions to [facility] pharmacy in [place] at your direction. Discharge Date/Time: 03/29/21 13:21
[2021-03-29 11:41] LABS: BASOPHILS % (AUTO) 0.3 %; EOSINOPHILS # (AUTO) 0.2 10^3/uL (0.0-0.7); EOSINOPHILS % (AUTO) 2.1 %; HCT - HEMATOCRIT 33.1 % (42.0-52.0); HGB - HEMOGLOBIN 10.6 g/dL (14.0-18.0); LYMPHOCYTES # (AUTO) 1.3 10^3/uL (1.5-3.5); LYMPHOCYTES % (AUTO) 18.3 %; MEAN CORPUSCULAR VOLUME 84.4 fL (80.0-94.0); MEAN PLATELET VOLUME 9.2 fL (7.4-11.4); MONOCYTES # (AUTO) 0.5 10^3/uL (0.0-1.0); MONOCYTES % (AUTO) 6.5 %; NEUTROPHILS # (AUTO) 5.1 10^3/uL (1.5-6.6); NEUTROPHILS % (AUTO) 72.5 %; PLT - PLATELET COUNT 247 10^3/uL (130-450); RED BLOOD COUNT 3.92 10^6/uL (4.70-6.10); RED CELL DISTRIBUTION WIDTH 15.3 % (12.0-15.0)
[2021-03-29 11:53] LABS: ALBUMIN 3.3 g/dL (3.2-5.5); ALBUMIN/GLOBULIN RATIO 0.8 (1.0-2.2); BILIRUBIN,TOTAL 0.9 mg/dL (0.2-1.0); CALCIUM 8.3 mg/dL (8.5-10.3); CREATININE 0.7 mg/dL (0.6-1.2); POTASSIUM 3.9 mmol/L (3.5-5.0); TOTAL PROTEIN 7.5 g/dL (6.7-8.2)
[2021-03-29] MEDS: ceFAZolin 1 GM VIAL IM STA (12:03)
[2021-03-29] MEDS: KETOROLAC 30 MG/ML VIAL IM STA (12:04)
[2021-03-29] MEDS: NALOXONE HCL NASAL SPRAY KIT NAS STA (12:04)
[2021-03-29 12:45] VITALS: BP 132/76
--- NOTE | 2021-03-29 13:30 | Ultrasound Report ---
PROCEDURE: Duplex Ext Veins Left, ultrasound INDICATIONS: lower left leg swelling/redness TECHNIQUE: Real-time imaging, as well as color and pulse Doppler interrogation, were performed of the lower extr emity deep veins from the inguinal ligament to the popliteal fossa. COMPARISON: None. FINDINGS: The deep veins are normally compressible, and free of intraluminal thrombus. Color and pu lse Doppler demonstrate normal phasic intraluminal flow. There is normal augmentation response to di stal compression maneuver. IMPRESSION: No evidence of deep venous thrombosis, left lower extremity Incidental left inguinal adenopathy measures up to 5 x 1.1 cm Reviewed by: Caio Tuttle MD on 03/29/2021 12:28 PM [place] Approved by: Caio Tuttle MD on 03/29/2021 12:28 PM [facility] Station ID: [id number]
== END 2021-03-29 13:21 | disposition home or self-care (01) ==
LOC: ED 10:23
DX: L03.116 Cellulitis of left lower limb (principal); S80.812A Abrasion, left lower leg, initial encounter; X58.XXXA Exposure to other specified factors, initial encounter; F11.90 Opioid use, unspecified, uncomplicated; F17.200 Nicotine dependence, unspecified, uncomplicated
CPT/HCPCS: 36415; 80053; 82550; 83690; 85025; 93971; 96372; 99284; G2215

== ENCOUNTER 2021-06-02 08:43 | Emergency (ER) | payer OTHER, MEDICAID ==
[2021-06-02 08:59] VITALS: BP 168/103
[2021-06-02] MEDS ORDERED: IBUPROFEN 800 MG TABLET PO STA (09:10)
[2021-06-02 09:42] LABS: BASOPHILS % (AUTO) 0.3 %; EOSINOPHILS # (AUTO) 0.1 10^3/uL (0.0-0.7); HCT - HEMATOCRIT 38.4 % (42.0-52.0); HGB - HEMOGLOBIN 12.3 g/dL (14.0-18.0); LYMPHOCYTES # (AUTO) 1.3 10^3/uL (1.5-3.5); LYMPHOCYTES % (AUTO) 21.3 %; MEAN CORPUSCULAR HEMOGLOBIN 26.9 pg (27.0-31.0); MEAN CORPUSCULAR VOLUME 83.8 fL (80.0-94.0); MEAN PLATELET VOLUME 9.7 fL (7.4-11.4); MONOCYTES # (AUTO) 0.4 10^3/uL (0.0-1.0); MONOCYTES % (AUTO) 7.2 %; NEUTROPHILS # (AUTO) 4.3 10^3/uL (1.5-6.6); NEUTROPHILS % (AUTO) 69.9 %; PLT - PLATELET COUNT 242 10^3/uL (130-450); RED BLOOD COUNT 4.58 10^6/uL (4.70-6.10); RED CELL DISTRIBUTION WIDTH 15.1 % (12.0-15.0); WHITE BLOOD COUNT 6.1 x10^3/uL (4.8-10.8)
--- NOTE | 2021-06-02 09:45 | ED Physician Documentation ---
History of Present Illness - Stated complaint Stated Complaint: FIT FOR CONFINEMENT - Chief complaint Chief Complaint: Ext Problem - History obtained from History obtained from: Patient - Additonal information Additional information: Patient is 51-year-old male presenting to the emergency department accompanied by police with chief complaints of left wrist swelling and evaluation for fitness for incarceration. Past medical significant for homelessness, polysubstance abuse including IV drug abuse and methamphetamine abuse. Patient endorses for active IVDA and methamphetamine use. States has been shooting into his left wrist and has had swelling, redness and pain with motion of the left wrist. Is unable to elucidate how long the symptoms have been going on for. Is uncertain whether or not he has had fevers at home. Request Suboxone while in the emergency department. Review of Systems Ten Systems: 10 systems reviewed and negative Eyes: denies: Loss of vision Ears: denies: Loss of hearing PD PAST MEDICAL HISTORY - Past Medical History Past Medical History: Yes Cardiovascular: Other Respiratory: None Neuro: None Endocrine/Autoimmune: None GI: None : None HEENT: None Psych: Bipolar disorder Musculoskeletal: None Derm: None - Past Surgical History Past Surgical History: No - Present Medications Home Medications: Ambulatory Orders Medication Instructions Recorded Confirmed Sulfamethox/Trimeth 800/160 1 each PO BID #14 tablet 06/02/21 [Bactrim Ds 800/160] cephALEXin [Keflex] 500 mg PO Q6H #20 cap 06/02/21 - Allergies Allergies/Adverse Reactions: Allergies Allergy/AdvReac Type Severity Reaction Status Date / Time No Known Drug Allergies Allergy Verified 06/02/21 08:54 - Social History Does the pt smoke?: Yes Smoking Status: Current every day smoker Does the pt drink ETOH?: Yes Does the pt have substance abuse?: Yes Substance Use and Type: Meth, Heroin - Immunizations Immunizations are current?: No Results - Vitals Vitals: Vital Signs - 24 hr 06/02/21 08:55 Temperature 37 C Heart Rate 76 Respiratory 20 Rate Blood Pressure 168/103 H O2 Saturation 100 Oxygen O2 Source Room air - Labs Labs: Laboratory Tests 06/02/21 06/02/21 06/02/21 09:35 09:35 09:35 WBC 6.1 RBC 4.58 L Hgb 12.3 L Hct 38.4 L MCV 83.8 MCH 26.9 L MCHC 32.0 RDW 15.1 H Plt Count 242 MPV 9.7 Neut # (Auto) 4.3 Lymph # (Auto) 1.3 L [place] # (Auto) 0.4 Eos # (Auto) 0.1 Baso # (Auto) 0.0 Absolute Nucleated RBC 0.00 Nucleated RBC % 0.0 ESR 16 H Sodium 132 L Potassium 3.7 Chloride 99 L Carbon Dioxide 26 Anion Gap 7.0 BUN 14 Creatinine 0.8 Estimated GFR (MDRD) 103 Glucose 109 H Calcium 8.7 Total Bilirubin 0.8 AST 23 ALT 26 Alkaline Phosphatase 56 C-Reactive Protein < 1.0 Total Protein 8.1 Albumin 3.9 Globulin 4.2 Albumin/Globulin Ratio 0.9 L PD MEDICAL DECISION MAKING - ED course Complexity details: reviewed results, re-evaluated patient, d/w patient ED course: Patient is a 51-year-old male presenting to the emergency department with left wrist swelling accompanied by police requesting evaluation for fitness for incarceration. Known history of polysubstance and IVDA. Afebrile, hemodynamically stable. The patient has seemed somewhat somnolent on the arrival to the emergency department but was arousable and answers all questions appropriately. Maintaining adequate oxygen saturations. Did have erythema around the right wrist with decreased range of motion secondary to pain. I did obtain comprehensive labs which are notable for a normal white blood cell count, a negative C-reactive protein and ESR of 16 in the setting of 1-15 being a normal interval. These findings are highly reassuring that there is no underlying osteomyelitis or septic joint. X-rays obtained did demonstrate multiple retained foreign bodies consistent with the patient's reported popping into the skin of his hand and wrist. He was given Motrin as well as Bactrim and Keflex in the emergency department in order to cover for possible MRSA soft tissue infection. Will discharge on a course of these antibiotics. He was informed of the retained metallic bodies and was given follow-up with an orthopedic hand specialist. Is otherwise discharged from our facility into the custody of police. Clear return precautions and follow-up instructions given prior to discharge. Departure - Departure Disposition: 01 Home, Self Care Clinical Impression: Cellulitis of wrist, Foreign body of wrist, Polysubstance abuse Instructions: ED Infec Skin Cellulitis Follow-Up: Pepe Conteh MD [Provider Admit Priv/Credential] - Prescriptions: Sulfamethox/Trimeth 800/160 [Bactrim Ds 800/160] 1 each PO BID #14 tablet cephALEXin [Keflex] 500 mg PO Q6H #20 cap Comments: Thank you for allowing us to care for you today at [facility]. Overall all of your lab work was very reassuring. The x-rays showed multiple small retained foreign bodies consistent with retained pieces of hypodermic needle. I would like you to begin a course of oral antibiotics in order to treat for soft tissue infection in the same wrist. You received your first doses here in the emergency department. I would like you to follow-up with a hand and wrist specialist concerning the retained metallic foreign bodies. Persistent infection may eventually lead to these needing to be removed in a surgical setting. I do strongly recommend working towards recovery from your substance abuse and I V drug abuse issues. If it anytime you have any new or worsening symptoms please not hesitate to return to the emergency department.
[2021-06-02 09:59] LABS: ALBUMIN 3.9 g/dL (3.2-5.5); ALBUMIN/GLOBULIN RATIO 0.9 (1.0-2.2); ALKALINE PHOSPHATASE 56 IU/L (42-121); ALT ALANINE AMINOTRANSFERASE 26 IU/L (10-60); AST ASPARTATE AMINOTRANSFERASE 23 IU/L (10-42); BILIRUBIN,TOTAL 0.8 mg/dL (0.2-1.0); BUN - BLOOD UREA NITROGEN 14 mg/dL (6-20); CALCIUM 8.7 mg/dL (8.5-10.3); CARBON DIOXIDE - CO2 26 mmol/L (21-32); CHLORIDE 99 mmol/L (101-111); CREATININE 0.8 mg/dL (0.6-1.2); GFR - MDRD 103 (>89); GLUCOSE 109 mg/dL (70-100); POTASSIUM 3.7 mmol/L (3.5-5.0); SODIUM 132 mmol/L (135-145); TOTAL PROTEIN 8.1 g/dL (6.7-8.2)
[2021-06-02 10:00] LABS: CRP - C-REACTIVE PROTEIN < 1.0 mg/dL (0-1.0)
--- NOTE | 2021-06-02 10:17 | XRAY Report ---
PROCEDURE: Wrist 4 View LT INDICATIONS: Wrist swelling TECHNIQUE: 4 views of the wrist were acquired. COMPARISON: None. FINDINGS: BONES: No acute, displaced fracture or dislocation. The carpal bones are normally aligned. 4 mm lucen cy in the distal scaphoid pole, which may reflect from cystic change or erosion. SOFT TISSUES: At least 3 metallic linear densities are seen about the wrist, which may reflect broken needle fragments. Diffuse soft tissue edema. IMPRESSION: 1.No acute osseous abnormality. 2.At least 3 metallic linear densities about the wrist, which may reflect broken needle fragments. Reviewed by: Abdelrahman Hernandez MD on 06/02/2021 10:16 AM PDT Approved by: Abdelrahman Hernandez MD on 06/02/2021 10:16 AM PDT Station ID: [id number]
[2021-06-02] MEDS ORDERED: SULFAMETH/TRIMETH DS 800/160 MG TABLET PO STA (10:20)
[2021-06-02] MEDS ORDERED: cephALEXin 250 MG CAPSULE PO STA (10:20)
== END 2021-06-02 11:15 | disposition home or self-care (01) ==
LOC: ED 08:43
DX: Z02.89 Encounter for other administrative examinations (principal); L03.114 Cellulitis of left upper limb; F19.10 Other psychoactive substance abuse, uncomplicated; M79.5 Residual foreign body in soft tissue; Z59.00 Homelessness unspecified; F17.200 Nicotine dependence, unspecified, uncomplicated
CPT/HCPCS: 36415; 73110; 80053; 85025; 85651; 86140; 99283; 99284; A9270

== ENCOUNTER 2023-01-24 06:29 | Outpatient (CLI) | payer MEDICAID | END 2023-01-24 06:30 | disposition EMS.NT | LOC: EMS 06:29 | DX: Z03.89 Encounter for observation for other suspected diseases and conditions ruled out (principal) ==